=== PATIENT | male | born 1980 | race Caucasian/White ===

== ENCOUNTER 2022-03-18 13:19 | Emergency (ER) | payer SELFPAY ==
[2022-03-18] MEDS ORDERED: Ketorolac Tromethamine 30 MG/ML VIAL ONE (15:23)
== END 2022-03-18 15:24 | disposition home or self-care (01) ==
LOC: CSHERS 13:19
DX: M54.50 Low back pain, unspecified (principal); F17.210 Nicotine dependence, cigarettes, uncomplicated
CPT/HCPCS: 96372; 99283; J1885

== ENCOUNTER 2022-05-18 17:22 | Emergency (ER) | payer SELFPAY ==
[~2022-05-18 17:22] MED LIST: Iopamidol 300 61% 100 ML VIAL FS ONE
[2022-05-18] MEDS ORDERED: Ondansetron PF 4 MG/2 ML Vial ONE (17:53)
[2022-05-18 18:04] LABS: #Basophils 0.1 10x3/uL (0.0-0.2); #Eosinphils 0.2 10x3/uL (0.0-0.5); #Monocytes 0.6 10x3/uL (0.0-1.1); #Neutrophils 3.7 10x3/uL (1.5-8.4); %Eosinophils 2.7 % (0.0-6.0); %Lymphocytes 33.1 % (18.0-47.0); %Monocytes 8.8 % (0.0-10.0); Hemoglobin 12.8 g/dL (13.5-17.5); Mean Corpuscular HGB CONC 35.4 g/dL (32.0-36.0); Mean Corpuscular Hemoglobin 31.4 pg (27.0-33.0); Mean Corpuscular Volume 88.9 fl (81.2-95.1); Platelet Count 326 10x3/uL (150-450); RBC Distribution Width 14.9 % (11.5-14.5); Red Blood Cell (RBC) Count 4.07 10x6/uL (4.32-5.72); White Blood Cell (WBC) Count 6.9 10x3/uL (3.5-10.5)
[2022-05-18 18:25] LABS: ALT (SGPT) 14 U/L (8-55); AST (SGOT) 17 U/L (5-34); Albumin 4.2 g/dL (3.5-5.0); Alkaline Phosphatase 77 U/L (40-110); Anion Gap 13 mmol/L (10-20); BUN (Urea Nitrogen) 19 mg/dL (8.9-20.6); Bilirubin, Total 0.2 mg/dL (0.2-1.2); Calc. Creatinine Clearance 0 mL/min (70-130); Calcium 9.2 mg/dL (7.8-10.44); Carbon Dioxide 23 mmol/L (22-29); Chloride 105 mmol/L (98-107); Estimated GFR 101; Glucose 147 mg/dL (70-105); Lipase 40 U/L (8-78); Potassium 4.2 mmol/L (3.5-5.1); Protein, Total 7.2 g/dL (6.0-8.3); Sodium 137 mmol/L (136-145)
[2022-05-18 18:42] LABS: SARS-CoV-2 NAA Rapid Test Not Detected (NotDetected)
== END 2022-05-18 19:21 | disposition home or self-care (01) ==
LOC: CSHERS 17:22
DX: B34.9 Viral infection, unspecified (principal); R10.31 Right lower quadrant pain; R11.2 Nausea with vomiting, unspecified; F17.210 Nicotine dependence, cigarettes, uncomplicated
CPT/HCPCS: 74177; 80053; 83690; 84484; 85025; 93005; 96374; J2405; Q9967

== ENCOUNTER 2022-09-18 17:47 | Inpatient (IN) | payer SELFPAY ==
[2022-09-18] MEDS ORDERED: Cefepime 2 GM VIAL ONE (20:39)
[2022-09-18 20:43] LABS: #Basophils 0.1 10x3/uL (0.0-0.2); #Eosinphils 0.3 10x3/uL (0.0-0.5); #Monocytes 0.9 10x3/uL (0.0-1.1); #Neutrophils 6.2 10x3/uL (1.5-8.4); %Basophils 0.6 % (0.0-2.0); %Eosinophils 2.8 % (0.0-6.0); %Lymphocytes 20.1 % (18.0-47.0); %Monocytes 9.5 % (0.0-10.0); %Neutrophils 66.7 % (40.0-75.0); Hemoglobin 14.2 g/dL (13.5-17.5); Mean Corpuscular HGB CONC 35.4 g/dL (32.0-36.0); Mean Corpuscular Hemoglobin 31.8 pg (27.0-33.0); Mean Corpuscular Volume 89.7 fl (81.2-95.1); Mean Platelet Volume 9.7 fl (7.4-10.4); Platelet Count 312 10x3/uL (150-450); RBC Distribution Width 12.9 % (11.5-14.5); Red Blood Cell (RBC) Count 4.47 10x6/uL (4.32-5.72); White Blood Cell (WBC) Count 9.2 10x3/uL (3.5-10.5)
[2022-09-18] MEDS ORDERED: Acetaminophen 500 MG TAB ONE (20:49)
[2022-09-18 20:58] LABS: ALT (SGPT) 26 U/L (8-55); AST (SGOT) 26 U/L (5-34); Albumin 4.3 g/dL (3.5-5.0); Alkaline Phosphatase 78 U/L (40-110); Anion Gap 13 mmol/L (10-20); BUN (Urea Nitrogen) 22 mg/dL (8.9-20.6); Bilirubin, Total 0.3 mg/dL (0.2-1.2); Calc. Creatinine Clearance 0 mL/min (70-130); Calcium 9.5 mg/dL (7.8-10.44); Carbon Dioxide 25 mmol/L (22-29); Chloride 105 mmol/L (98-107); Estimated GFR 112; Globulin 3.4 g/dL (2.4-3.5); Glucose 84 mg/dL (70-105); Protein, Total 7.7 g/dL (6.0-8.3); Sodium 139 mmol/L (136-145)
[2022-09-18] MEDS ORDERED: Vancomycin 1 GM VIAL ONE (21:24)
[2022-09-18 21:38] LABS: Bilirubin Neg (Negative); Blood, Urine 10 (Negative); Clarity Clear (Clear); Glucose, Urine (Dipstick) Normal (Negative); Ketone, Urine Negative (Negative); Leukocyte Negative (Negative); Nitrite Negative (Negative); Protein, Urine (Dipstick) 15 mg/dl (Neg-Trace); Specific Gravity, Urine 1.015 (1.005-1.030); Urobilinogen Normal mg/dL (Less than 2)
[2022-09-18 21:43] LABS: Bacteria/HPF None Seen HPF (None Seen); RBC/HPF 0-3 HPF (0-3); Squamous Epithelial 0-3 HPF (0-3); WBC/HPF 0-3 HPF (0-3)
[2022-09-18] MEDS ORDERED: Fentanyl 100 MCG/2 ML VIAL ONE (22:29)
[2022-09-18] MEDS ORDERED: Calcium Carbonate 500 MG ChewTAB PO PRN (22:50)
[2022-09-18] MEDS ORDERED: Acetaminophen 325 MG TAB PO PRN (22:50)
[2022-09-18] MEDS ORDERED: Guaifenesin DM 100-10/5 ML UDCUP PO PRN (22:50)
[2022-09-18] MEDS ORDERED: Senokot S 8.6-50 MG TAB PO PRN (22:50)
[2022-09-18] MEDS ORDERED: Ondansetron PF 4 MG/2 ML Vial IVP PRN (22:50)
[2022-09-18 22:54] LABS: SARS-CoV-2 NAA Rapid Test Not Detected (NotDetected)
[2022-09-18] MEDS ORDERED: Lactated Ringer's 500 ML IV SCH (23:00)
[2022-09-18] MEDS: Lactated Ringer's 1,000 ML IV SCH (23:58)
[2022-09-19 04:03] LABS: #Basophils 0.1 10x3/uL (0.0-0.2); #Eosinphils 0.3 10x3/uL (0.0-0.5); #Monocytes 0.9 10x3/uL (0.0-1.1); #Neutrophils 4.4 10x3/uL (1.5-8.4); %Basophils 0.8 % (0.0-2.0); %Eosinophils 3.4 % (0.0-6.0); %Monocytes 11.9 % (0.0-10.0); %Neutrophils 59.8 % (40.0-75.0); Hemoglobin 12.7 g/dL (13.5-17.5); Mean Corpuscular HGB CONC 34.2 g/dL (32.0-36.0); Mean Corpuscular Hemoglobin 31.4 pg (27.0-33.0); Mean Corpuscular Volume 91.6 fl (81.2-95.1); Mean Platelet Volume 9.6 fl (7.4-10.4); Platelet Count 287 10x3/uL (150-450); Red Blood Cell (RBC) Count 4.05 10x6/uL (4.32-5.72); White Blood Cell (WBC) Count 7.3 10x3/uL (3.5-10.5)
[2022-09-19 04:06] LABS: Anion Gap 12 mmol/L (10-20); BUN (Urea Nitrogen) 21 mg/dL (8.9-20.6); Calc. Creatinine Clearance 0 mL/min (70-130); Calcium 8.7 mg/dL (7.8-10.44); Carbon Dioxide 20 mmol/L (22-29); Chloride 108 mmol/L (98-107); Estimated GFR 114; Glucose 93 mg/dL (70-105); Potassium 4.1 mmol/L (3.5-5.1); Sodium 136 mmol/L (136-145)
[2022-09-19 04:18] LABS: CRP (Inflammatory) 5.08 mg/dL (= or < 0.5)
[2022-09-19] MEDS ORDERED: BIKTARVY PO SCH (06:15)
[2022-09-19] MEDS ORDERED: Cefepime 1 GM VIAL ONE (08:47)
[2022-09-19] MEDS ORDERED: Enoxaparin Sodium 40 MG/0.4 ML SYRINGE ONE (08:47)
[2022-09-19] MEDS ORDERED: HYDROcodone/Acetaminophen 5/325 mg Tablet ONE (08:47)
[2022-09-19] MEDS: HYDROcodone/Acetaminophen 5/325 mg Tablet PO PRN ×3 (09:00→18:12)
[2022-09-19] MEDS ORDERED: DULoxetine 30 MG CAP PO SCH (09:00)
[2022-09-19] MEDS: Cefepime 1 GM in Sodium Chloride 0.9% 100 ML IVPB SCH ×2 (09:00→20:21)
[2022-09-19] MEDS: Enoxaparin Sodium 40 MG/0.4 ML SYRINGE SC SCH (09:00)
[2022-09-19] MEDS: Lactated Ringer's 1,000 ML IV SCH ×2 (09:00→18:15)
[2022-09-19] MEDS: Propranolol 10 MG TAB PO SCH ×2 (09:19→20:23)
[2022-09-19] MEDS: VANCOMYCIN 1.25 GM/250 ML BAG 1.25 GM in Premix Bag 1 BAG IVPB SCH ×2 (10:00→21:25)
[2022-09-19] MEDS ORDERED: Vancomycin 1 GM in Premix Bag 1 BAG IVPB SCH (11:00)
[2022-09-19] MEDS: Nicotine 14 MG PATCH TD SCH (11:04)
[2022-09-19] MEDS ORDERED: FLU VACC QS2022-23(6MOS UP)/PF 60 MCG/0.5 ML SYRINGE IM ONE (12:00)
[2022-09-19] MEDS: Gabapentin 400 MG CAP PO SCH ×2 (14:14→20:22)
[2022-09-19] MEDS: DULoxetine 30 MG CAP PO SCH ×2 (14:14→20:23)
[2022-09-19] MEDS: cloNIDine 0.1 MG TAB PO SCH ×2 (14:15→20:27)
[2022-09-19] MEDS ORDERED: Propranolol HCl 20 MG TAB PO PRN (18:35)
[2022-09-19] MEDS: OLANZapine 5 MG TAB PO SCH (20:23)
[2022-09-20] MEDS: Nicotine 14 MG PATCH TD SCH (00:38)
[2022-09-20 04:39] LABS: #Basophils 0.1 10x3/uL (0.0-0.2); #Eosinphils 0.3 10x3/uL (0.0-0.5); #Monocytes 0.7 10x3/uL (0.0-1.1); #Neutrophils 2.9 10x3/uL (1.5-8.4); %Basophils 1.2 % (0.0-2.0); %Eosinophils 5.2 % (0.0-6.0); %Lymphocytes 31.3 % (18.0-47.0); %Monocytes 12.1 % (0.0-10.0); Hemoglobin 12.9 g/dL (13.5-17.5); Mean Corpuscular HGB CONC 34.2 g/dL (32.0-36.0); Mean Corpuscular Hemoglobin 31.5 pg (27.0-33.0); Mean Platelet Volume 10.3 fl (7.4-10.4); Platelet Count 288 10x3/uL (150-450); RBC Distribution Width 12.7 % (11.5-14.5); White Blood Cell (WBC) Count 5.8 10x3/uL (3.5-10.5)
[2022-09-20 04:52] LABS: Anion Gap 11 mmol/L (10-20); BUN (Urea Nitrogen) 14 mg/dL (8.9-20.6); Calc. Creatinine Clearance 127 mL/min (70-130); Calcium 8.4 mg/dL (7.8-10.44); Carbon Dioxide 23 mmol/L (22-29); Chloride 109 mmol/L (98-107); Estimated GFR 115; Glucose 106 mg/dL (70-105); Potassium 3.6 mmol/L (3.5-5.1); Sodium 139 mmol/L (136-145)
[2022-09-20] MEDS: Lactated Ringer's 1,000 ML IV SCH ×2 (06:37→11:00)
[2022-09-20 08:42] LABS: Vancomycin, Trough 13.8 ug/mL
[2022-09-20] MEDS: VANCOMYCIN 1.25 GM/250 ML BAG 1.25 GM in Premix Bag 1 BAG IVPB SCH ×2 (10:34→22:25)
[2022-09-20] MEDS: Enoxaparin Sodium 40 MG/0.4 ML SYRINGE SC SCH (10:35)
[2022-09-20] MEDS: Cefepime 1 GM in Sodium Chloride 0.9% 100 ML IVPB SCH ×2 (10:37→21:37)
[2022-09-20] MEDS: Gabapentin 400 MG CAP PO SCH ×3 (10:38→21:36)
[2022-09-20] MEDS: DULoxetine 30 MG CAP PO SCH ×3 (10:38→21:37)
[2022-09-20] MEDS: cloNIDine 0.1 MG TAB PO SCH ×3 (10:39→21:34)
[2022-09-20] MEDS: Lisinopril 10 MG TAB PO SCH (10:40)
[2022-09-20] MEDS: Propranolol 10 MG TAB PO SCH ×2 (10:40→21:43)
[2022-09-20] MEDS: HYDROcodone/Acetaminophen 5/325 mg Tablet PO PRN ×3 (10:54→21:37)
[2022-09-20 14:14] VITALS: BMI 26.2
[2022-09-20 15:13] LABS: %CD4 (Helper/Inducer) 38.5 % (30.8-58.5); Absolute CD4 693 /uL (359-1519); Lymphocytes/Gated Cell Count 1.8 x10E3/uL (0.7-3.1); Total Lymphocyte 26 % (Not Estab.)
[2022-09-20] MEDS: OLANZapine 5 MG TAB PO SCH (21:36)
[2022-09-20] MEDS ORDERED: Clindamycin/D5W 600 MG in Premix Bag 1 BAG IVPB SCH (23:59)
[2022-09-21] MEDS: Nicotine 14 MG PATCH TD SCH (00:44)
[2022-09-21] MEDS: Clindamycin/D5W 600 MG in Premix Bag 1 BAG IVPB SCH ×4 (00:45→22:04)
[2022-09-21 04:17] LABS: ALT (SGPT) 13 U/L (8-55); AST (SGOT) 16 U/L (5-34); Albumin 3.2 g/dL (3.5-5.0); Alkaline Phosphatase 77 U/L (40-110); Anion Gap 10 mmol/L (10-20); BUN (Urea Nitrogen) 13 mg/dL (8.9-20.6); Bilirubin, Total 0.1 mg/dL (0.2-1.2); Calc. Creatinine Clearance 132 mL/min (70-130); Calcium 8.3 mg/dL (7.8-10.44); Carbon Dioxide 24 mmol/L (22-29); Chloride 111 mmol/L (98-107); Estimated GFR 116; Globulin 2.4 g/dL (2.4-3.5); Glucose 106 mg/dL (70-105); Potassium 3.9 mmol/L (3.5-5.1); Protein, Total 5.6 g/dL (6.0-8.3); Sodium 141 mmol/L (136-145)
[2022-09-21 04:58] LABS: #Basophils 0.1 10x3/uL (0.0-0.2); #Eosinphils 0.3 10x3/uL (0.0-0.5); #Monocytes 0.7 10x3/uL (0.0-1.1); #Neutrophils 2.6 10x3/uL (1.5-8.4); %Basophils 1.1 % (0.0-2.0); %Lymphocytes 35.1 % (18.0-47.0); %Monocytes 12.6 % (0.0-10.0); %Neutrophils 45.8 % (40.0-75.0); Mean Corpuscular HGB CONC 34.4 g/dL (32.0-36.0); Mean Corpuscular Hemoglobin 31.7 pg (27.0-33.0); Mean Corpuscular Volume 92.2 fl (81.2-95.1); Mean Platelet Volume 10.2 fl (7.4-10.4); Platelet Count 302 10x3/uL (150-450); RBC Distribution Width 12.5 % (11.5-14.5); White Blood Cell (WBC) Count 5.6 10x3/uL (3.5-10.5)
[2022-09-21] MEDS: Lactated Ringer's 1,000 ML IV SCH ×3 (06:19→21:53)
[2022-09-21] MEDS: HYDROcodone/Acetaminophen 5/325 mg Tablet PO PRN ×3 (06:24→21:12)
[2022-09-21 08:14] LABS: LOG10 HIV-1 RNA 2.079 (.)
[2022-09-21] MEDS: VANCOMYCIN 1.25 GM/250 ML BAG 1.25 GM in Premix Bag 1 BAG IVPB SCH ×3 (09:52→23:00)
[2022-09-21] MEDS: Cefepime 2 GM in Sodium Chloride 0.9% 100 ML IVPB SCH ×2 (09:53→21:09)
[2022-09-21] MEDS: cloNIDine 0.1 MG TAB PO SCH ×3 (09:54→21:57)
[2022-09-21] MEDS: DULoxetine 30 MG CAP PO SCH ×3 (09:54→21:15)
[2022-09-21] MEDS: Gabapentin 400 MG CAP PO SCH ×3 (09:54→21:15)
[2022-09-21] MEDS: Enoxaparin Sodium 40 MG/0.4 ML SYRINGE SC SCH (09:56)
[2022-09-21] MEDS: Propranolol 10 MG TAB PO SCH ×2 (12:17→21:57)
[2022-09-21] MEDS: Lisinopril 10 MG TAB PO SCH (12:17)
[2022-09-21] MEDS: OLANZapine 5 MG TAB PO SCH (21:16)
[2022-09-21] MEDS: traZODone HCl 50 MG TAB PO PRN (22:04)
[2022-09-22] MEDS: Nicotine 14 MG PATCH TD SCH (01:00)
[2022-09-22 05:37] LABS: Anion Gap 11 mmol/L (10-20); BUN (Urea Nitrogen) 12 mg/dL (8.9-20.6); Calc. Creatinine Clearance 127 mL/min (70-130); Calcium 8.4 mg/dL (7.8-10.44); Carbon Dioxide 24 mmol/L (22-29); Chloride 109 mmol/L (98-107); Estimated GFR 115; Glucose 130 mg/dL (70-105); Potassium 3.7 mmol/L (3.5-5.1); Sodium 140 mmol/L (136-145)
[2022-09-22 05:44] LABS: #Basophils 0.1 10x3/uL (0.0-0.2); #Eosinphils 0.3 10x3/uL (0.0-0.5); #Monocytes 0.6 10x3/uL (0.0-1.1); #Neutrophils 1.9 10x3/uL (1.5-8.4); %Basophils 1.6 % (0.0-2.0); %Eosinophils 6.1 % (0.0-6.0); %Lymphocytes 36.8 % (18.0-47.0); %Monocytes 13.5 % (0.0-10.0); %Neutrophils 41.8 % (40.0-75.0); Mean Corpuscular HGB CONC 34.3 g/dL (32.0-36.0); Mean Corpuscular Hemoglobin 31.5 pg (27.0-33.0); Mean Corpuscular Volume 91.8 fl (81.2-95.1); Mean Platelet Volume 10.3 fl (7.4-10.4); Platelet Count 293 10x3/uL (150-450); RBC Distribution Width 12.3 % (11.5-14.5); Red Blood Cell (RBC) Count 4.13 10x6/uL (4.32-5.72); White Blood Cell (WBC) Count 4.4 10x3/uL (3.5-10.5)
[2022-09-22] MEDS: Clindamycin/D5W 600 MG in Premix Bag 1 BAG IVPB SCH ×3 (05:54→22:41)
[2022-09-22] MEDS: VANCOMYCIN 1.25 GM/250 ML BAG 1.25 GM in Premix Bag 1 BAG IVPB SCH ×2 (09:29→23:59)
[2022-09-22] MEDS: Cefepime 2 GM in Sodium Chloride 0.9% 100 ML IVPB SCH ×2 (09:29→22:35)
[2022-09-22] MEDS: Gabapentin 400 MG CAP PO SCH ×3 (09:30→22:25)
[2022-09-22] MEDS: Enoxaparin Sodium 40 MG/0.4 ML SYRINGE SC SCH (09:30)
[2022-09-22] MEDS: DULoxetine 30 MG CAP PO SCH ×3 (09:31→22:26)
[2022-09-22] MEDS: cloNIDine 0.1 MG TAB PO SCH ×3 (09:31→22:26)
[2022-09-22] MEDS: Lisinopril 10 MG TAB PO SCH (09:32)
[2022-09-22] MEDS: Propranolol 10 MG TAB PO SCH ×2 (09:34→22:25)
[2022-09-22] MEDS ORDERED: Iopamidol 300 61% 100 ML VIAL FS ONE (09:51)
[2022-09-22] MEDS ORDERED: PATIENT'S HOME MEDICATION PO SCH (10:00)
[2022-09-22] MEDS: Lactated Ringer's 1,000 ML IV SCH ×2 (10:46→17:53)
[2022-09-22] MEDS: HYDROcodone/Acetaminophen 5/325 mg Tablet PO PRN ×3 (10:54→22:39)
[2022-09-22] MEDS ORDERED: Prevnar 13-Val Conj/PF 0.5 ML SYRINGE IM ONE (12:00)
[2022-09-22] MEDS ORDERED: Nicotine 14 MG PATCH TD SCH (21:00)
[2022-09-22] MEDS: OLANZapine 5 MG TAB PO SCH (22:25)
[2022-09-23] MEDS: traZODone HCl 50 MG TAB PO PRN (00:47)
[2022-09-23 04:31] LABS: #Basophils 0.1 10x3/uL (0.0-0.2); #Eosinphils 0.3 10x3/uL (0.0-0.5); #Monocytes 0.7 10x3/uL (0.0-1.1); %Eosinophils 4.7 % (0.0-6.0); %Lymphocytes 29.9 % (18.0-47.0); %Monocytes 12.1 % (0.0-10.0); %Neutrophils 51.6 % (40.0-75.0); Hemoglobin 13.8 g/dL (13.5-17.5); Mean Corpuscular Hemoglobin 31.1 pg (27.0-33.0); Mean Corpuscular Volume 91.4 fl (81.2-95.1); Mean Platelet Volume 9.7 fl (7.4-10.4); Platelet Count 276 10x3/uL (150-450); RBC Distribution Width 12.4 % (11.5-14.5); Red Blood Cell (RBC) Count 4.44 10x6/uL (4.32-5.72); White Blood Cell (WBC) Count 5.8 10x3/uL (3.5-10.5)
[2022-09-23 04:51] LABS: ALT (SGPT) 122 U/L (8-55); AST (SGOT) 138 U/L (5-34); Albumin 3.5 g/dL (3.5-5.0); Alkaline Phosphatase 89 U/L (40-110); Anion Gap 11 mmol/L (10-20); BUN (Urea Nitrogen) 13 mg/dL (8.9-20.6); Bilirubin, Total 0.2 mg/dL (0.2-1.2); Calc. Creatinine Clearance 125 mL/min (70-130); Calcium 8.9 mg/dL (7.8-10.44); Carbon Dioxide 28 mmol/L (22-29); Chloride 105 mmol/L (98-107); Estimated GFR 114; Globulin 2.8 g/dL (2.4-3.5); Glucose 90 mg/dL (70-105); Potassium 3.8 mmol/L (3.5-5.1); Protein, Total 6.3 g/dL (6.0-8.3); Sodium 140 mmol/L (136-145)
[2022-09-23] MEDS: Clindamycin/D5W 600 MG in Premix Bag 1 BAG IVPB SCH (06:17)
[2022-09-23] MEDS: VANCOMYCIN 1.25 GM/250 ML BAG 1.25 GM in Premix Bag 1 BAG IVPB SCH (08:51)
[2022-09-23] MEDS: Cefepime 2 GM in Sodium Chloride 0.9% 100 ML IVPB SCH (08:51)
[2022-09-23] MEDS: DULoxetine 30 MG CAP PO SCH (08:52)
[2022-09-23] MEDS: HYDROcodone/Acetaminophen 5/325 mg Tablet PO PRN (08:52)
[2022-09-23] MEDS: Enoxaparin Sodium 40 MG/0.4 ML SYRINGE SC SCH (08:52)
[2022-09-23] MEDS: Gabapentin 400 MG CAP PO SCH (08:53)
[2022-09-23] MEDS ORDERED: PATIENT'S HOME MEDICATION PO SCH (09:00)
[2022-09-23] MEDS: cloNIDine 0.1 MG TAB PO SCH (09:02)
[2022-09-23] MEDS: Propranolol 10 MG TAB PO SCH (09:02)
[2022-09-23] MEDS: Lisinopril 10 MG TAB PO SCH (09:03)
[2022-09-23] MEDS: Lactated Ringer's 1,000 ML IV SCH (10:00)
[2022-09-23 10:02] LABS: Vancomycin, Trough 14.9 ug/mL
[2022-09-23 11:54] VITALS: BP 115/59; TEMP 98.3
== END 2022-09-23 12:57 | disposition home or self-care (01) | DRG 603 ==
LOC: CSHERS 17:47 → CSHERHOLD 22:09 → CSHTELE 09-19 09:27
PROVIDERS: ADMIT Nurse Practitioner Acute Care; ATTEND Internal Medicine
PROC: 0J9H0ZZ Drainage of Left Lower Arm Subcutaneous Tissue and Fascia, Open Approach (ICD-10-PCS; principal; 2022-09-18)
DX: L03.114 Cellulitis of left upper limb (principal); Z20.822 Contact with and (suspected) exposure to COVID-19; L02.414 Cutaneous abscess of left upper limb; F15.10 Other stimulant abuse, uncomplicated; F17.210 Nicotine dependence, cigarettes, uncomplicated; I10 Essential (primary) hypertension; Z21 Asymptomatic human immunodeficiency virus [HIV] infection status; F12.10 Cannabis abuse, uncomplicated; F41.9 Anxiety disorder, unspecified; F32.A Depression, unspecified; G47.00 Insomnia, unspecified; Z71.51 Drug abuse counseling and surveillance of drug abuser; Z71.6 Tobacco abuse counseling; Z90.89 Acquired absence of other organs; Z82.49 Family history of ischemic heart disease and other diseases of the circulatory system
CPT/HCPCS: 10061; 36415; 80048; 80053; 80202; 81001; 82550; 83605; 84145; 85025; 86140; 86361; 87040; 87070; 87205; 87536; 93005; 93306; 96365; 96366; 96367; 96375; J0692; J1650; J2405; J3010; J3370; J3490; J7120; Q9967; U0002

== ENCOUNTER 2023-02-16 20:47 | Emergency (ER) | payer BC, SELFPAY ==
[2023-02-16] MEDS ORDERED: predniSONE 20 MG TAB ONE (21:30)
== END 2023-02-16 21:37 | disposition home or self-care (01) ==
LOC: CSHERS 20:47
DX: B88.0 Other acariasis (principal); F17.210 Nicotine dependence, cigarettes, uncomplicated
CPT/HCPCS: 99282; J7512

== ENCOUNTER 2023-05-06 18:05 | Emergency (ER) | payer BC ==
[2023-05-06] MEDS ORDERED: Lidocaine 1% (PF) 30 ML VIAL ONE (20:01)
[2023-05-06] MEDS ORDERED: Morphine 4 MG/ML VIAL ONE (20:08)
== END 2023-05-06 21:12 | disposition home or self-care (01) ==
LOC: CSHERS 18:05
DX: L05.91 Pilonidal cyst without abscess (principal); I10 Essential (primary) hypertension; B20 Human immunodeficiency virus [HIV] disease; F17.210 Nicotine dependence, cigarettes, uncomplicated
CPT/HCPCS: 96372; 99283; J2001; J2270

== ENCOUNTER 2023-07-31 15:24 | Emergency (ER) | payer BC ==
[2023-07-31] MEDS ORDERED: methylPREDNISolone Sod Succ/PF 125 MG/2 ML VIAL ONE (16:07)
== END 2023-07-31 16:53 | disposition home or self-care (01) ==
LOC: CSHERS 15:24
DX: L30.9 Dermatitis, unspecified (principal); I10 Essential (primary) hypertension; F17.210 Nicotine dependence, cigarettes, uncomplicated
CPT/HCPCS: 96372; 99282; J2930

== ENCOUNTER 2023-09-08 13:58 | Emergency (ER) | payer BC, SELFPAY ==
[2023-09-08] MEDS ORDERED: CEFAZOLIN 1 GM VIAL ONE (14:51)
[2023-09-08] MEDS ORDERED: Ketorolac Tromethamine 30 MG/ML VIAL ONE (15:00)
[2023-09-08 15:11] LABS: #Basophils 0.1 10x3/uL (0.0-0.2); #Eosinphils 0.3 10x3/uL (0.0-0.5); #Monocytes 1.2 10x3/uL (0.0-1.1); %Basophils 0.5 % (0.0-2.0); %Eosinophils 2.4 % (0.0-6.0); %Lymphocytes 10.5 % (18.0-47.0); %Monocytes 10.4 % (0.0-10.0); %Neutrophils 75.8 % (40.0-75.0); Hematocrit 41.2 % (38.8-50.0); Mean Corpuscular Hemoglobin 31.2 pg (27.0-33.0); Mean Corpuscular Volume 91.8 fl (81.2-95.1); Mean Platelet Volume 9.5 fl (7.4-10.4); Platelet Count 259 10x3/uL (150-450); RBC Distribution Width 13.3 % (11.5-14.5); Red Blood Cell (RBC) Count 4.49 10x6/uL (4.32-5.72); White Blood Cell (WBC) Count 11.9 10x3/uL (3.5-10.5)
[2023-09-08 15:27] LABS: ALT (SGPT) 28 U/L (8-55); AST (SGOT) 30 U/L (5-34); Alkaline Phosphatase 77 U/L (40-110); Anion Gap 14 mmol/L (10-20); BUN (Urea Nitrogen) 19 mg/dL (8.9-20.6); Bilirubin, Total 0.6 mg/dL (0.2-1.2); Calc. Creatinine Clearance 0 mL/min (70-130); Calcium 8.8 mg/dL (7.8-10.44); Carbon Dioxide 22 mmol/L (22-29); Chloride 104 mmol/L (98-107); Estimated GFR 112; Globulin 2.8 g/dL (2.4-3.5); Glucose 119 mg/dL (70-105); Potassium 3.7 mmol/L (3.5-5.1); Protein, Total 6.8 g/dL (6.0-8.3); Sodium 136 mmol/L (136-145)
== END 2023-09-08 17:54 | disposition home or self-care (01) ==
LOC: CSHERS 13:58
DX: L03.116 Cellulitis of left lower limb (principal); I10 Essential (primary) hypertension; Z21 Asymptomatic human immunodeficiency virus [HIV] infection status; F17.210 Nicotine dependence, cigarettes, uncomplicated
CPT/HCPCS: 80053; 85025; 96365; 96375; J0690; J1885

== ENCOUNTER 2023-09-09 18:51 | Emergency (ER) | payer SELFPAY ==
[2023-09-09] MEDS ORDERED: cefTRIAXone (ROCEPHIN) 1 GM VIAL ONE (20:29)
== END 2023-09-09 21:00 | disposition home or self-care (01) ==
LOC: CSHERS 18:51
DX: L03.116 Cellulitis of left lower limb (principal); I10 Essential (primary) hypertension; Z21 Asymptomatic human immunodeficiency virus [HIV] infection status; F17.210 Nicotine dependence, cigarettes, uncomplicated
CPT/HCPCS: 96374; J0696

== ENCOUNTER 2023-11-26 14:45 | Emergency (ER) | payer BC, OTHER ==
[2023-11-26] MEDS ORDERED: Lidocaine 1% (PF) 30 ML VIAL ONE (15:35)
== END 2023-11-26 16:28 | disposition home or self-care (01) ==
LOC: CSHERS 14:45
DX: M65.031 Abscess of tendon sheath, right forearm (principal); I10 Essential (primary) hypertension; F17.210 Nicotine dependence, cigarettes, uncomplicated; Z21 Asymptomatic human immunodeficiency virus [HIV] infection status; Z55.6 Problems related to health literacy
CPT/HCPCS: 10060; J2001

== ENCOUNTER 2023-12-26 18:39 | Emergency (ER) | payer OTHER ==
[2023-12-26 20:28] LABS: ALT (SGPT) 30 U/L (8-55); AST (SGOT) 29 U/L (5-34); Albumin 4.3 g/dL (3.5-5.0); Alkaline Phosphatase 76 U/L (40-110); Anion Gap 12 mmol/L (10-20); BUN (Urea Nitrogen) 23 mg/dL (8.9-20.6); Bilirubin, Total 0.2 mg/dL (0.2-1.2); Calc. Creatinine Clearance 0 mL/min (70-130); Calcium 9.2 mg/dL (7.8-10.44); Carbon Dioxide 23 mmol/L (22-29); Chloride 107 mmol/L (98-107); Estimated GFR 109; Globulin 2.8 g/dL (2.4-3.5); Glucose 98 mg/dL (70-105); Protein, Total 7.1 g/dL (6.0-8.3); Sodium 138 mmol/L (136-145)
[2023-12-26 20:30] LABS: #Basophils 0.1 10x3/uL (0.0-0.2); #Eosinphils 0.6 10x3/uL (0.0-0.5); #Monocytes 0.9 10x3/uL (0.0-1.1); #Neutrophils 4.3 10x3/uL (1.5-8.4); %Basophils 1.1 % (0.0-2.0); %Eosinophils 7.2 % (0.0-6.0); %Lymphocytes 29.8 % (18.0-47.0); %Monocytes 10.2 % (0.0-10.0); %Neutrophils 51.3 % (40.0-75.0); Hematocrit 44.5 % (38.8-50.0); Mean Corpuscular HGB CONC 33.7 g/dL (32.0-36.0); Mean Corpuscular Hemoglobin 30.6 pg (27.0-33.0); Mean Corpuscular Volume 90.8 fl (81.2-95.1); Mean Platelet Volume 10.4 fl (7.4-10.4); Platelet Count 310 10x3/uL (150-450); RBC Distribution Width 13.8 % (11.5-14.5); White Blood Cell (WBC) Count 8.5 10x3/uL (3.5-10.5)
== END 2023-12-26 20:45 | disposition home or self-care (01) ==
LOC: CSHERS 18:39
DX: L03.113 Cellulitis of right upper limb (principal); I10 Essential (primary) hypertension; F17.210 Nicotine dependence, cigarettes, uncomplicated; Z21 Asymptomatic human immunodeficiency virus [HIV] infection status; Z55.6 Problems related to health literacy
CPT/HCPCS: 36415; 80053; 83605; 85025; 87040; 99283

== ENCOUNTER 2024-08-03 12:25 | Emergency (ER) | payer OTHER ==
[2024-08-03] MEDS ORDERED: Morphine 4 MG/ML VIAL ONE (12:58)
[2024-08-03 13:19] LABS: #Basophils 0.06 10x3/uL (0.0-0.2); #Monocytes 1.16 10x3/uL (0.0-1.1); #Neutrophils 6.73 10x3/uL (1.5-8.4); %Basophils 0.6 % (0.0-2.0); %Lymphocytes 16.8 % (18.0-47.0); %Monocytes 11.6 % (0.0-10.0); %Neutrophils 67.5 % (40.0-75.0); Hematocrit 40.9 % (38.8-50.0); Hemoglobin 13.6 g/dL (13.5-17.5); Mean Corpuscular HGB CONC 33.3 g/dL (32.0-36.0); Mean Corpuscular Hemoglobin 30.3 pg (27.0-33.0); Mean Corpuscular Volume 91.1 fL (81.2-95.1); Mean Platelet Volume 9.8 fL (7.4-10.4); Platelet Count 246 10x3/uL (150-450); RBC Distribution Width 12.8 % (11.5-14.5); Red Blood Cell (RBC) Count 4.49 10x6/uL (4.32-5.72)
[2024-08-03 13:43] LABS: ALT (SGPT) 29 U/L (8-55); AST (SGOT) 33 U/L (5-34); Albumin 3.7 g/dL (3.5-5.0); Alkaline Phosphatase 85 U/L (40-110); Anion Gap 14 mmol/L (10-20); BUN (Urea Nitrogen) 19 mg/dL (8.9-20.6); Bilirubin, Total 0.3 mg/dL (0.2-1.2); Calc. Creatinine Clearance 0 mL/min (70-130); Calcium 9.5 mg/dL (7.8-10.44); Carbon Dioxide 24 mmol/L (22-29); Chloride 104 mmol/L (98-107); Estimated GFR 108; Globulin 3.4 g/dL (2.4-3.5); Glucose 121 mg/dL (70-105); Potassium 3.6 mmol/L (3.5-5.1); Protein, Total 7.1 g/dL (6.0-8.3); Sodium 138 mmol/L (136-145)
[2024-08-03] MEDS ORDERED: Ampicillin/Sulbactam 3 GM in Sodium Chloride 0.9% 100 ML IVPB SCH (14:30)
== END 2024-08-03 14:49 | disposition home or self-care (01) ==
LOC: CSHERS 12:25
DX: J34.0 Abscess, furuncle and carbuncle of nose (principal); L03.211 Cellulitis of face; J32.9 Chronic sinusitis, unspecified
CPT/HCPCS: 70487; 80053; 85025; 96374; 96375; J0295; J2272; Q9967

== ENCOUNTER 2024-08-06 23:45 | Emergency (ER) | payer OTHER ==
[2024-08-07 00:48] LABS: #Basophils 0.05 10x3/uL (0.0-0.2); #Eosinophils 0.38 10x3/uL (0.0-0.5); #Monocytes 1.05 10x3/uL (0.0-1.1); #Neutrophils 4.12 10x3/uL (1.5-8.4); %Basophils 0.7 % (0.0-2.0); %Eosinophils 5.2 % (0.0-6.0); %Lymphocytes 22.9 % (18.0-47.0); %Monocytes 14.3 % (0.0-10.0); %Neutrophils 56.1 % (40.0-75.0); Hematocrit 41.9 % (38.8-50.0); Hemoglobin 14.1 g/dL (13.5-17.5); Mean Corpuscular HGB CONC 33.7 g/dL (32.0-36.0); Mean Corpuscular Hemoglobin 30.5 pg (27.0-33.0); Mean Corpuscular Volume 90.7 fL (81.2-95.1); Mean Platelet Volume 9.7 fL (7.4-10.4); Platelet Count 326 10x3/uL (150-450); RBC Distribution Width 12.7 % (11.5-14.5); Red Blood Cell (RBC) Count 4.62 10x6/uL (4.32-5.72); White Blood Cell (WBC) Count 7.3 10x3/uL (3.5-10.5)
[2024-08-07 01:07] LABS: ALT (SGPT) 32 U/L (8-55); AST (SGOT) 32 U/L (5-34); Albumin 3.6 g/dL (3.5-5.0); Alkaline Phosphatase 96 U/L (40-110); Anion Gap 14 mmol/L (10-20); BUN (Urea Nitrogen) 21 mg/dL (8.9-20.6); Bilirubin, Total 0.2 mg/dL (0.2-1.2); Calc. Creatinine Clearance 0 mL/min (70-130); Calcium 9.6 mg/dL (7.8-10.44); Carbon Dioxide 25 mmol/L (22-29); Chloride 102 mmol/L (98-107); Estimated GFR 110; Globulin 3.9 g/dL (2.4-3.5); Glucose 100 mg/dL (70-105); Potassium 4.2 mmol/L (3.5-5.1); Protein, Total 7.5 g/dL (6.0-8.3); Sodium 137 mmol/L (136-145)
[2024-08-07] MEDS ORDERED: HYDROcodone/Acetaminophen 5/325 mg Tablet ONE (01:58)
[2024-08-07] MEDS ORDERED: Acetaminophen 325 MG TAB ONE (01:59)
== END 2024-08-07 04:37 | disposition home or self-care (01) ==
LOC: CSHERS 23:45
DX: J34.0 Abscess, furuncle and carbuncle of nose (principal); F17.210 Nicotine dependence, cigarettes, uncomplicated; I10 Essential (primary) hypertension
CPT/HCPCS: 36415; 70486; 80053; 84145; 85025

== ENCOUNTER 2024-10-27 23:14 | Emergency (ER) | payer OTHER ==
[2024-10-28] MEDS ORDERED: Hydrocortisone 1% Cream 30 GM TUBE TOP SCH (00:45)
== END 2024-10-28 01:06 | disposition home or self-care (01) ==
LOC: CSHERS 23:14
DX: L20.9 Atopic dermatitis, unspecified (principal); F17.210 Nicotine dependence, cigarettes, uncomplicated; I10 Essential (primary) hypertension
CPT/HCPCS: 99282

== ENCOUNTER 2025-07-08 21:05 | Emergency (ER) | payer OTHER | END 2025-07-08 22:07 | disposition home or self-care (01) | LOC: CSHERS 21:05 | DX: J32.9 Chronic sinusitis, unspecified (principal); I10 Essential (primary) hypertension; B20 Human immunodeficiency virus [HIV] disease; F17.210 Nicotine dependence, cigarettes, uncomplicated | CPT/HCPCS: 71046; 87428 ==

== ENCOUNTER 2025-08-23 15:49 | Emergency (ER) | payer OTHER ==
[2025-08-23 17:16] LABS: #Basophils 0.07 10x3/uL (0.0-0.2); #Eosinophils 0.44 10x3/uL (0.0-0.5); #Monocytes 0.99 10x3/uL (0.0-1.1); #Neutrophils 7.96 10x3/uL (1.5-8.4); %Basophils 0.6 % (0.0-2.0); %Eosinophils 4.0 % (0.0-6.0); %Lymphocytes 14.5 % (18.0-47.0); %Monocytes 8.9 % (0.0-10.0); %Neutrophils 71.7 % (40.0-75.0); Hematocrit 33.0 % (38.8-50.0); Hemoglobin 11.0 g/dL (13.5-17.5); Mean Corpuscular Hemoglobin 31.2 pg (27.0-33.0); Mean Corpuscular Volume 93.5 fL (81.2-95.1); Platelet Count 350 10x3/uL (150-450); Red Blood Cell (RBC) Count 3.53 10x6/uL (4.32-5.72); White Blood Cell (WBC) Count 11.10 10x3/uL (3.5-10.5)
[2025-08-23 17:41] LABS: ALT (SGPT) 13 U/L (Less than 45); AST (SGOT) 14 U/L (11-34); Albumin 3.1 g/dL (3.1-4.5); Alkaline Phosphatase 87 U/L (40-110); Anion Gap 12 mmol/L (10-20); BUN (Urea Nitrogen) 14 mg/dL (8.9-20.6); Bilirubin, Total 0.1 mg/dL (0.3-1.2); Calc. Creatinine Clearance 0 mL/min (70-130); Calcium 8.2 mg/dL (7.8-10.44); Carbon Dioxide 28 mmol/L (22-29); Chloride 102 mmol/L (98-107); Globulin 3.0 g/dL (2.4-3.5); Glucose 119 mg/dL (70-105); Potassium 3.4 mmol/L (3.5-5.1); Sodium 139 mmol/L (136-145)
[2025-08-23] MEDS ORDERED: Cefepime 2 GM VIAL ONE (18:00)
== END 2025-08-23 20:56 | disposition short-term general hospital (02) ==
LOC: CSHERS 15:49
DX: L03.113 Cellulitis of right upper limb (principal); B20 Human immunodeficiency virus [HIV] disease; I10 Essential (primary) hypertension; F17.210 Nicotine dependence, cigarettes, uncomplicated
CPT/HCPCS: 36415; 80053; 83605; 85025; 86140; 87040; 96374; 96375; J0692; J2272; J3373